=== PATIENT | female | born 1970 | race African-American/Black ===

== ENCOUNTER 2016-06-13 04:00 | Emergency (ER) | payer MEDICARE, OTHER ==
[~2016-06-13] VITALS: Ht 170.2 cm; Wt 100.7 kg
[2016-06-13 04:05] VITALS: BP 127/95
--- NOTE | 2016-06-13 04:17 | Emergency Room Report ---
History of Present Illness General Chief Complaint: Pain Source: Patient Present Illness HPI 45 YOF BIBEMS for left knee pain. Denies acute trauma. Patient states left knee operated on 9 years ago for "when it popped out," doesnt "want it to pop out again." Asking me to treat her pain "to prevent it from happening again." States has oxycodone at home, not taking it because it makes her nauseated. Demanding IM dilaudid here. Otherwise denies fever/chills, redness to knee, reduced ROM. Allergies: Coded Allergies: KETOROLAC (Verified Allergy, Unknown, 06/13/16) Patient History Past Medical History: unable to obtain Past Surgical History: other - ?unspecified knee surgery Pertinent Family History: unable to obtain Social History: Denies: alcohol use, drug use, smoking Now: No Immunizations: UTD Reviewed Nursing Documentation: PMH: Agreed, PSxH: Agreed Nursing Documentation-PMH Hx Hypertension: Yes Review of Systems All Other Systems: negative except mentioned in HPI Physical Exam Vital Signs Date Time Temp Pulse Resp B/P Pulse Ox O2 Delivery O2 Flow Rate FiO2 06/13/16 04:01 98.1 62 16 127/95 96 Room Air Sp02 EP Interpretation: reviewed, normal General Appearance: normal inspection, well appearing, no apparent distress, alert, GCS 15, non-toxic Head: normocephalic, atraumatic Eyes: bilateral eye EOMI, bilateral eye PERRL ENT: normal ENT inspection, hearing grossly normal, normal voice Neck: normal inspection, full range of motion, supple, no bony tend Respiratory: normal inspection, lungs clear, normal breath sounds, no respiratory distress, no retraction, no wheezing Cardiovascular #1: regular rate, rhythm, no edema Gastrointestinal: normal inspection, normal bowel sounds, non tender, soft, no guarding, no hernia Genitourinary: no CVA tenderness Musculoskeletal: normal inspection, back normal, normal range of motion, no calf tenderness, Gonsalo's Sign negative, other - left knee: midline post- surgical scar. full ROM. No dislocation. 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 VSS. Afebrile. Atraumatic. No dislocation clinically. No sign of cellulitis. Low suspicion for septic joint. Patient continuing to demand Dilaudid ("I always get that at the ER!") I offered patient tylenol or ibuprofen at which point patient became belligerent , demanding to be transferred to another hospital, yelling at me, said "you're not a real doctor, fuck you" and "get me the fuck out of here" and "get me someone above you." Patient was verbally aggressive, disturbing other very sick patients in nearby beds, significantly affecting operation of the ED. I am very concerned for narcotic-seeking behavior given her violent and belligerent response to not getting dilaudid here. I looked on [employer] and there are multiple addresses listed for this patient/birthdate combination. This is the patient's first visit here and she did not provide an accurate phone number however patient was using phone in the ED. I and nurses spent considerable time trying to reason with patient but she would repeatedly interrupt us, curse us out, say she wanted us to provide her ambulance to another hospital. As such, patient was formally discharged from the ED as she expressed desire to go to different ER and did not want to be treated here but would not leave the premises Patient walking around in the ED without limp or distress, standing at MD/RN station, cursing out staff with foul language. Hospital security refused to touch patient. Only after asking them multiple times would they escort the patient to the waiting area so we could resume providing care to other patients in the ED. [facility]ISS called to escort patient from hospital and from the premises for trespassing. Last Vital Signs Date Time Temp Pulse Resp B/P Pulse Ox O2 Delivery O2 Flow Rate FiO2 06/13/16 04:01 98.1 62 16 127/95 96 Room Air Status: improved Disposition: HOME, SELF-CARE Condition: Improved Patient Instructions: Knee Pain, Jyra-ob-Bvas J[place] EGAN M.D. Jun 13, 2016 04:17
[2016-06-13 05:10] VITALS: BP 127/95
== END 2016-06-13 05:10 | disposition home or self-care (01) ==
LOC: EDBD 04:00 → EMR 04:18
DX: M25.562 Pain in left knee (principal); G89.29 Other chronic pain; Z76.5 Malingerer [conscious simulation]; I10 Essential (primary) hypertension; Z88.6 Allergy status to analgesic agent
CPT/HCPCS: 99283